=== PATIENT | female | born 2000 ===

== ENCOUNTER 2018-12-30 12:06 | Emergency (ER) | payer OTHER ==
[2018-12-30 12:15] VITALS: BP 127/83; PULSE 73; RESP 18; TEMP 97.5; O2SAT 98
--- NOTE | 2018-12-30 13:01 | ED PDOC ---
Arrival/HPI - General Chief Complaint: Dizziness/Lightheaded Time Seen by Provider: 12/30/18 12:16 Historian: Patient - History of Present Illness Narrative History of Present Illness (Text): 12/30/18 12:55 18 year old female, whose past medical history includes Ryagt-Sfkjalgwr-Ieswt syndrome s/p ablation, presents to the emergency department complaining of dizziness associated with nausea and vomiting that began this morning. Patient reports when lying down she feels the dizziness and describes it as like she's "on a boat rocking back and forth". Patient reports she recently traveled 1 week ago and also attended a loud concert. She denies any trauma or injury. Patient reports episodes of vomiting, but denies any fever, chills, chest pain, shortness of breath, diarrhea, urinary symptoms, back pain, neck pain, headache, or any other complaints. Past Medical History - Provider Review Nursing Documentation Reviewed: Yes - Psychiatric Hx Substance Use: No - Surgical History Other/Comment: Cardiac ablasion Family/Social History - Physician Review Nursing Documentation Reviewed: Yes Family/Social History: No Known Family HX Smoking Status: Never Smoked Hx Alcohol Use: Yes Frequency of alcohol use: Socially Hx Substance Use: No Allergies/Home Meds Allergies/Adverse Reactions: Allergies No Known Allergies Allergy (Verified 12/30/18 12:15) Home Medications: Home Meds Medication Instructions Recorded Confirmed Control 12/30/18 Review of Systems - Physician Review All systems were reviewed & negative as marked: Yes - Review of Systems Constitutional: absent: Fevers Cardiovascular: absent: Chest Pain Physical Exam - Physical Exam Narrative Physical Exam (Text): Constitutional: No acute distress. Head: Normocephalic. Atraumatic. Eyes: PERRL. ENT: Moist mucous membranes. TMs normal. Neck: Supple. Cardiovascular: Regular rate. Chest: No tenderness. Respiratory: Clear to auscultation bilaterally. GI: Soft. Nontender. Nondistended. Back: No CVA tenderness. Musculoskeletal: No tenderness or swelling of extremities. Skin: No rash. Neurologic: Alert, no focal deficit. Positive Maximino-Hallpike Maneuver. Normal Finger to nose and knee to jesus. Vital Signs Reviewed: Yes Vital Signs Temp Pulse Resp BP Pulse Ox 12/30/18 12:12 97.5 F L 73 18 127/83 98 Medical Decision Making ED Course and Treatment: 12/30/18 13:00 Impression: 18 year old female presents complaining of dizziness associated with nausea and vomiting that began this morning. PE shows positive Milton-Hallpike Maneuver Plan: -- Antivert -- Reassess and disposition Progress Notes: On re-evaluation, patient is in no acute distress. I have discussed the plan with the patient, who expresses understanding. Patient in agreement with plan to be discharged home. Patient is stable for discharge. Patient was instructed to follow up with ENT or return if symptoms worsen or new concerning symptoms arise. - Medication Orders Current Medication Orders: Meclizine HCl (Antivert) 50 mg PO STAT STA Stop: 12/30/18 12:55 - Scribe Statement The provider has reviewed the documentation as recorded by the Len Pat Provider Petraibe Attestation: All medical record entries made by the Scribe were at my direction and personally dictated by me. I have reviewed the chart and agree that the record accurately reflects my personal performance of the history, physical exam, medical decision making, and the department course for this patient. I have also personally directed, reviewed, and agree with the discharge instructions and disposition. Disposition/Present on Arrival - Present on Arrival Any Indicators Present on Arrival: No History of DVT/PE: No History of Uncontrolled Diabetes: No Urinary Catheter: No History of Decub. Ulcer: No History Surgical Site Infection Following: None - Disposition Have Diagnosis and Disposition been Completed?: Yes Diagnosis: BPPV (benign paroxysmal positional vertigo) Disposition: HOME/ ROUTINE Disposition Time: 13:26 Patient Plan: Discharge Condition: GOOD Discharge Instructions (ExitCare): Vertigo (a Type of Dizziness) Prescriptions: Meclizine [Antivert] 25 mg PO TID PRN #20 tab PRN Reason: Dizziness Referrals: Endy Iyer DO [Staff Provider] - Follow up with primary Forms: [employer] (Romanian), WORK NOTE
== END 2018-12-30 13:43 | disposition home or self-care (01) ==
LOC: ED 12:06
DX: H81.10 Benign paroxysmal vertigo, unspecified ear (principal); I45.6 Pre-excitation syndrome